=== PATIENT | female | born 2000 | race Caucasian/White ===

== ENCOUNTER 2019-03-01 00:35 | Emergency (ER) | payer BC ==
[2019-03-01] MEDS ORDERED: Ondansetron PF 4 MG/2 ML Vial ONE (01:28)
== END 2019-03-01 02:53 | disposition home or self-care (01) ==
LOC: ERS 00:35
DX: F10.129 Alcohol abuse with intoxication, unspecified (principal)
CPT/HCPCS: 96361; 96374; J2405